=== PATIENT | female | born 1960 | race Caucasian/White ===

== ENCOUNTER → 2020-07-11 | Outpatient (CLI) | payer BC | LOC: M.LAB 15:53 | PROVIDERS: ATTEND Orthopaedic Surgery | DX: Z01.812 Encounter for preprocedural laboratory examination (principal); Z20.822 Contact with and (suspected) exposure to COVID-19 ==

== ENCOUNTER → 2021-01-06 | Outpatient (CLI) | payer BC | LOC: M.LAB 10:30 | PROVIDERS: ATTEND Orthopaedic Surgery | DX: Z01.812 Encounter for preprocedural laboratory examination (principal); Z20.822 Contact with and (suspected) exposure to COVID-19 ==

== ENCOUNTER → 2021-04-20 | Outpatient (CLI) | payer BC | LOC: M.MRI 11:04 | PROVIDERS: ATTEND Orthopaedic Surgery | DX: S83.241A Other tear of medial meniscus, current injury, right knee, initial encounter (principal); M17.11 Unilateral primary osteoarthritis, right knee; M25.461 Effusion, right knee; X58.XXXA Exposure to other specified factors, initial encounter; Y93.89 Activity, other specified; Y92.89 Other specified places as the place of occurrence of the external cause; Y99.8 Other external cause status ==

== ENCOUNTER → 2021-05-06 | Outpatient (CLI) | payer BC ==
[~2021-05-06] MED LIST: B COMPLEX1 EACH PO; DOXYCYCLINE 10100 MG PO; FISH OIL 1,4001 EACH PO; FRUIT & VEGETA1 EACH PO; LEVOFLOXACIN500 MG PO; MAGNESIUM250 M1 PO; MEDROL4 M1 PO; MILK THISTLE140 M2 PO; NORVASC5 MG PO; PROBIOTIC 4X C1 EACH PO; VITAMIN D350 MC3 PO
[2021-05-06 08:58] LABS: URINE BILIRUBIN NEGATIVE (Negative); URINE BLOOD NEGATIVE (Negative); URINE CLARITY CLEAR; URINE COLOR YELLOW; URINE GLUCOSE-RANDOM NEGATIVE (Negative); URINE KETONES NEGATIVE (Negative); URINE LEUKOCYTES-REFLEX TRACE (Negative); URINE NITRITE-REFLEX NEGATIVE (Negative); URINE PROTEIN NEGATIVE (Negative); URINE UROBILINOGEN 0.2 E.U./dl (0.2-1.0)
[2021-05-06 09:01] LABS: ABSOLUTE BASOPHILS 0.1 thou/uL (0.0-0.2); ABSOLUTE EOSINOPHILS 0.3 thou/uL (0.0-0.7); ABSOLUTE LYMPHOCYTES 1.4 thou/uL (0.8-5.3); ABSOLUTE MONOCYTES 0.4 thou/uL (0.0-1.2); ABSOLUTE NEUTROPHILS 2.8 thou/uL (1.6-8.1); BASOPHILS 1.1 %; EOSINOPHILS 5.8 %; HEMATOCRIT 39.6 % (37.0-47.0); HEMOGLOBIN 13.3 gm/dL (12.0-15.0); LYMPHOCYTES 28.8 %; MCH 27.5 pg (26.0-34.0); MCHC 33.6 g/dL (28.0-37.0); MCV 81.9 fL (80.0-100.0); MONOCYTES 8.1 %; MPV 8.1 fl. (7.2-11.1); NUCLEATED RBCS 0 /100WBC; PLATELET COUNT* 287 thou/uL (150-400); POLYS 56.2 %; RBC 4.84 mil/uL (4.20-5.00); RDW-CV 14.4 % (10.5-14.5); WBC 4.9 thou/uL (4.0-11.0)
[2021-05-06 09:07] LABS: CASTS None Seen /LPF (None Seen); CRYSTALS None Seen /LPF (None Seen); SQUAMOUS >10 Many /LPF (0-3); URINE RBC 0-2 Rare /HPF (0-2); URINE WBC-REFLEX 0-5 Rare /HPF (0-5)
[2021-05-06 09:08] LABS: BACTERIA-REFLEX 1-9 Few /HPF (None Seen)
[2021-05-06 09:17] LABS: PROTIME 9.8 Seconds (9.20-11.50)
[2021-05-06 09:20] LABS: ALBUMIN 3.6 g/dL (3.4-5.0); CALCIUM 8.8 mg/dL (8.5-10.1); POTASSIUM 3.8 mmol/L (3.5-5.1); TOTAL BILIRUBIN 0.7 mg/dL (<0.1-1.0); TOTAL PROTEIN 6.6 g/dL (6.4-8.2)
--- NOTE | 2021-05-06 13:57 | EKG ---
[place] [address] ELECTROCARDIOGRAM REPORT Name: LAKSHMILORENA Rachael Room: [facility]#: [id number] Admission: 05/06/21 Attend Phys: Edmundo Lewis, Discharge: Date of : 58 Date of Service: 05/06/21 0949 Report #: [id number] THIS REPORT FOR: //name// [facility] Test Date: 2021-05-06 Test Time: 09:49:12 Pat Name: LORENA MARTINS Department: Room: Gender: F Contracting Specialist: Rachael GREY RN : 1960 Requested By: Edmundo Lewis Order Number: [id number] MD: Chester Mohan Measurements Intervals [place] Rate: 87 P: 34 OR: 162 QRS: 37 QRSD: 97 T: 43 QT: 405 QTc: 488 Interpretive Statements Sinus rhythm Borderline prolonged QT interval Baseline wander in lead(s) I,III,aVR,aVL,aVF,V1,V2,V3,V4,V5,V6 No previous ECG available for comparison Electronically Signed On 05-06-2021 13:57:11 GAMEPLAY PROGRAMMER by Chester Mohan [email or web address] <ELECTRONICALLY SIGNED> By: Chester Mohan MD, FACC 05/06/21 1357 0949 0949 Chester Mohan MD, FACC /EPI
== END ==
LOC: M.LAB 05:32
PROVIDERS: ATTEND Orthopaedic Surgery
DX: Z01.818 Encounter for other preprocedural examination (principal); Z01.812 Encounter for preprocedural laboratory examination; M17.11 Unilateral primary osteoarthritis, right knee

== ENCOUNTER 2021-05-12 06:40 | Observation (INO) | payer BC ==
[~2021-05-12] VITALS: Ht 160 cm; Wt 104.8 kg
--- NOTE | 2021-05-13 11:45 | NUR ---
PATIENT ASLEEP AT THIS TIME. NO SIGNS OF DISTESS. MOTHER AT BEDSIDE. VITAL SIGN STABLE. NURSING WILL CONTINUE TO MONITOR.
[2021-05-13 12:27] VITALS: BP 149/90
--- NOTE | 2021-05-13 12:34 | NUR ---
PATIENT ASSISTED ONTO BEDPAN AT THIS TIME. NO SIGNS OF DISTRESS. INSTRUCTED TO USED CALL LIGHT WHEN FINISHED.
--- NOTE | 2021-05-13 13:07 | NUR ---
NO OT AT THIS TIME, WILL DEFER TO PT
--- NOTE | 2021-05-13 14:27 | NUR ---
PATIENT ALERT AND ORIENTED AT THIS TIME. REQUESTING PAIN MEDICATION. RATES PAIN 5/10. GIVEN MEDICATION ORDERED. NO OTHER SIGNS OF DISTRESS. NURSING WILL CONTINUE TO MONITOR.
[2021-05-13 16:30] VITALS: BP 152/84
--- NOTE | 2021-05-13 16:30 | NUR ---
PATIENT TO ROOM 232 AT THIS TIME. NO SIGNS OF DISTRESS. VITAL SIGNS STABLE. REPORT GIVEN TO RANJIT LIN. BED IN LOW, LOCKED POSITION WITH CALL LIGHT WITHIN REACH.
--- NOTE | 2021-05-13 18:53 | NUR ---
PATIENT ADMITTED TO ROOM 232 THIS EVENING. ALERT AND ORIENTED. PATIENT GIVEN PRN HYDROCODONE THIS EVENING IN ANTICIPATION FOR CPM. IVF INFUSING, SCHED ABX TO INFUSE. DARRON HOSE AND SCD'S IN PLACE, POLAR SONALI TO RIGHT KNEE. VITALS STABLE. BIPAP AT NIGHT. UP WITH BSC WITH ASSISTANCE OF 2; GAIT BELT IN PLACE. FALL RISK PROTOCOL. CALL LIGHT WITHIN REACH.
[2021-05-13 20:00] VITALS: BP 130/82
[2021-05-14 00:52] VITALS: BP 122/86
[2021-05-14 04:41] VITALS: BP 126/72
--- NOTE | 2021-05-14 05:21 | NUR ---
PATIENT SLEPT WELL DURING THE NIGHT. PT REFUSED CPM MACHINE AND BIPAP. PT REFUSED TO GET UP TO BSC TO VOID REQUESTING BEDPAN. EDUCATION GIVEN ON IMPORTANCE OF ALL OF THIS TO AID IN HEALING. PT SAID SHE JUST WANTED TO REST TONIGHT AND WOULD WORK HARDER TOMORROW. PT WITH TEMP OF 100.0 DURING THE NIGHT AND WAS ENCOURAGED TO USE HER INCENTIVE SPIROMETER. TEMP AT 98.5 AT 0400 VITALS. PT WITH FLUIDS/ANTIBIOTICS INFUSING PER DR ORDER. PT GIVEN HYDROCODONE 1 TAB AT 0400 FOR PAIN. PT REPOSITIONED FREQUENTLY DURING THE SHIFT. FREQUENTLY USED ITEMS AND CALL LIGHT WITHIN REACH. SIDERAILS UPX2 AND BED ALARM ON. WILL CONTINUE TO MONITOR.
[2021-05-14 05:57] LABS: HEMATOCRIT 32.4 % (37.0-47.0)
[2021-05-14 08:17] VITALS: BP 144/66
--- NOTE | 2021-05-14 13:04 | NUR ---
Nutrition: consult for wound. Pt with incision s/p rt knee replacement. 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 BMI indicates class III morbid obesity. Albumin WNL. Meds reviewed. Pt concerned about protein for healing and would like to try Ensure Max and Ensure Enlive. Assess at low nutrition risk.
[2021-05-14 16:00] VITALS: BP 152/78
--- NOTE | 2021-05-14 18:48 | NUR ---
PT IS A&O X4. PT IS ON RM AIR. PT HAS HX OF BREAST CA NO STICKS IN RT ARM. PT HAS IV IN LT WRIST. PT HAD RT KNEE SURGERY. TAKING PAIN MEDS TO CONTROL PAIN. PT IS GETTING UP TO BED SIDE COMMODE. PT HAD PT AND OT THIS SHIFT. PT IS RESTING IN BED WITH CALL LIGHT IN REACH AND FALL PRECAUTIONS IN PLACE.
[2021-05-14 20:15] VITALS: BP 151/78
--- NOTE | 2021-05-15 04:43 | NUR ---
PT A&O X 4. ON RA. PAIN MANAGED WITH NORCO 1 TAB PER PT REQUEST. UP TO BSC WITH 1 ASSIST. POLAR PACK. DARRON EVANS, SCDS IN PLACE. CALL LIGHT WITHIN REACH. WILL CONTINUE TO MONITOR.
[2021-05-15 05:29] VITALS: BP 167/84
[2021-05-15 07:59] VITALS: BP 164/78
[2021-05-15 08:59] LABS: HEMATOCRIT 34.3 % (37.0-47.0); HEMOGLOBIN 11.8 gm/dL (12.0-15.0)
[2021-05-15 09:03] VITALS: BP 164/78
[2021-05-15] MEDS ORDERED: XARELTO10 MG PO (11:47)
[2021-05-15 12:13] VITALS: BP 131/75
--- NOTE | 2021-05-15 13:50 | NUR ---
PT UP WITH GAIT BELT AND WALKER. PT HAD PT THERAPY THIS SHIFT . PT IV DC'D PT IS GOING HOME. PT IS WAITING FOR DC, WITH CALL LIGHT IN REACH AND FLL PRECAUTIONS IN PLACE.
--- NOTE | 2021-05-15 14:03 | NUR ---
PLAN FOR THE PT TO D/C HOME TODAY WITH [facility]. CM FAXED D/C ORDERS TO [facility]. CM WILL REMAIN AVAILABLE TO ASSIST AND FOLLOW NEEDED. [facility] PHONE: [phone] FAX: [phone]
--- NOTE | 2021-05-15 14:09 | NUR ---
DISCHARGE ORDERS RECEIVED AND DISCHARGE COMPLETED DOCUMENTED. DISCHARGE EDUCATION GONE OVER WITH PT, PT COMMUNICATES UNDERSTANDING. CLINICAL SERVICES DIRECTOR AND IV REMOVED. PT AWARE THAT HOME HEALTH WILL BE CALLING TO SET UP FIRST VISIT AND PT AWARE TO FOLLOW UP WITH ORTHOPEDIC DOCTOR. 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 ALL BELONGINGS GATHERED AND READY TO LEAVE WITH PT. PT AWAITING HER RIDE AT THIS TIME.
--- NOTE | 2021-05-18 12:20 | EKG ---
[place] [address] ELECTROCARDIOGRAM REPORT Name: LORENA MARTINS Room: [address] M.R.#: [id number] Admission: 05/13/21 Attend Phys: Lele Thomas Discharge: 05/15/21 Date of : 58 Date of Service: 05/14/21 1005 Report #: [id number] THIS REPORT FOR: //name// [facility] Test Date: 2021-05-14 Test Time: 10:05:36 Pat Name: LORENA MARTINS Department: Room: [address] Gender: F Coconut Jelly Roller: SANJANA : 1960 Requested By: Lele Thomas Order Number: [id number] Reading MD: Chester Mohan Measurements Intervals [place] Rate: 97 P: 37 CA: 185 QRS: 14 QRSD: 91 T: 17 QT: 366 QTc: 465 Interpretive Statements Sinus rhythm RSR' in V1 or V2, right VCD Compared to ECG 05/06/2021 09:49:12 RSR' in V1 or V2 now present Electronically Signed On 05-18-2021 12:20:39 JOINT MAKER MACHINE by Chester Mohan [email or web address] <ELECTRONICALLY SIGNED> By: Chester Mohan MD, FACC 05/18/21 1220 1005 1005 Chester Mohan MD, FAC /EPI
--- NOTE | 2021-05-19 09:03 | OP ---
[address] [address] OPERATIVE REPORT Name: LORENA MARTINS Room: [address] Jill Leary#: [id number] Admission: 05/13/21 Attend Phys: Daniel eKlly Discharge: 05/15/21 Date of : 58 Report #: [id number] THIS REPORT FOR: cc: Young Liang MD, Louis A. MD Greiner, Robert F. II DO ~ DATE OF SURGERY: 05/13/2021 PREOPERATIVE DIAGNOSIS: Right knee osteoarthritis. POSTOPERATIVE DIAGNOSIS: Right knee osteoarthritis. PROCEDURE: Right total knee arthroplasty. SURGEON: Edmundo Lewis II, DO. MEDICAL LOGISTICS SPECIALIST: CAMILA Page. ANESTHESIA: Per operative record. ESTIMATED BLOOD LOSS: 50 mL. ANTIBIOTICS: Per operative record. DRAINS: Medium Hemovac. COMPLICATIONS: None. CONDITION: The patient stable to recovery room. DESCRIPTION OF PROCEDURE: The patient was taken to the operative suite, placed supine on the operating table, given appropriate anesthesia. A well-padded tourniquet applied to the upper thigh, which was inflated to 300 mmHg after gravity exsanguination. The operative knee was sterilely prepped and draped. Surgery began by midline incision, was carried down to subcutaneous tissues. A medial parapatellar arthrotomy was performed, carried down to bone. Patella was then everted and excess soft tissues were removed from the femur. Femoral cutting block was then applied, checked with a drop rotational alignment, pinned in appropriate position and appropriate cuts were made. A 5-in-1 cutting block was then applied, checked for rotational alignment, pinned in appropriate position and appropriate cuts were made. The tibia was then exposed. Excess meniscus was removed. Retractor was placed on collateral ligaments. The tibial cutting block was then applied, pinned in appropriate position, checked with drop radha for rotational alignment and slope and appropriate cut was made. The tibial bone was removed. The tibial baseplate was then applied, checked for rotational alignment with the drop radha and [place] [address] OPERATIVE REPORT Name: LAKSHMILORENA Room: [address] [place].#: [id number] Admission: 05/13/21 Attend Phys: Daniel Kelly Discharge: 05/15/21 Date of : 58 Report #: [id number] Femur was then applied and box cut was reamed. This was then trialed with appropriate spacer, which showed excellent fit and fill and excess stability of these are all range of motion. The patella was reamed in appropriate fashion, sized to appropriate size. Three peg holes were drilled and it was then trialled and shown to have excellent flexion, extension, excellent tracking patella within the groove. These trials were removed. The tibia was punched in appropriate fashion. Bone ends were cleansed with Pulsavac irrigation and cement was mixed, applied to final implants. These were malleted into position and held the knee in extension and compressed to allow cement to cure. After it cured, excess was removed utilizing [place] and osteotome. Wound was then copiously irrigated and the final spacer was malleted into position. The tourniquet was deflated. Hemostasis was maintained with electrocautery. Pain cocktail were injected. The capsule was closed with #2 FiberWire and #1 Vicryl in [id number] fashion. Skin was closed with 2-0 Vicryl in running 3-0 Monocryl. Dermabond dressing applied. Keegan wrap and PolarCare applied. The patient was transferred to recovery room in stable condition. Counts were correct throughout the procedure. <ELECTRONICALLY SIGNED> By: Edmundo Lewis II, DO 05/19/21 0903 0534 0549Edmundo Lewis II, DO /nt
== END 2021-05-15 14:35 | disposition home or self-care (01) ==
LOC: M.ORTHSURG 06:40 → M.TBA 05-13 06:06 → M.2W 05-13 06:06 → M.TBA 05-13 07:19 → M.2W 05-13 16:38
PROVIDERS: Orthopaedic Surgery; ADMIT Internal Medicine; ATTEND Internal Medicine
DX: M17.11 Unilateral primary osteoarthritis, right knee (principal); Z20.822 Contact with and (suspected) exposure to COVID-19; I10 Essential (primary) hypertension; F17.200 Nicotine dependence, unspecified, uncomplicated; Z79.899 Other long term (current) drug therapy; Z85.3 Personal history of malignant neoplasm of breast